=== PATIENT | female | born 1980 | race Caucasian/White ===

== ENCOUNTER 2020-04-07 07:40 | Outpatient (REF) | payer MEDICAID, SELFPAY ==
[2020-04-07 08:36] LABS: MANUAL DIFF FLAG NO
[2020-04-07 08:49] LABS: Basophils Percent Auto 0.3 % (0-2); Eosinophils Absolute Auto 0.2 X10*3/uL (0.0-0.4); Eosinophils Percent Auto 2.6 % (0-4); Hematocrit 44.1 % (37-47); Hemoglobin 14.9 g/dl (12.0-16.0); Imm Gran Abs Auto 0.02 X10*3/uL (0.00-0.03); Imm Gran Pct Auto 0.2 % (0.0-0.4); Lymphocytes Absolute Auto 2.5 X10*3/uL (1.2-4.9); Lymphocytes Percent Auto 27.5 % (20-40); Mean Corpuscular HGB Conc 33.8 g/dl (31.0-35.0); Mean Corpuscular Hemoglobin 31.2 pg (27.0-33.0); Mean Corpuscular Volume 92.3 fL (80-98); Monocytes Absolute Auto 0.8 X10*3/uL (0.1-1.2); Monocytes Percent Auto 8.2 % (2-11); Neutrophils Absolute Auto 5.6 X10*3/uL (2.0-8.3); Neutrophils Percent Auto 61.2 % (45-73); Platelet Count 280 X10*3/uL (160-400); Red Blood Count 4.78 X10*6/uL (4.20-5.50); Red Cell Distribution Width 11.9 % (11.0-16.0); White Blood Count 9.2 X10*3/uL (4.8-10.8)
[2020-04-07 09:05] LABS: Alanine Aminotransferase 19 U/L (0-31); Albumin Level 4.4 g/dL (3.5-5.0); Alkaline Phosphatase 54 U/L (39-117); Anion Gap 11 (12-20); Aspartate Amino Transferase 15 U/L (5-31); Bilirubin Total 0.7 mg/dL (0.0-1.0); Blood Urea Nitrogen 14 mg/dL (9-16); Calcium 9.1 mg/dL (8.4-10.2); Carbon Dioxide 27 mmol/L (22-29); Chloride 104 mmol/L (96-108); Cholesterol 206 mg/dL; Estimated Glomerular Filt Rate > 60; Glucose Random 101 mg/dL (60-115); HDL Cholesterol 42 mg/dL; LDL Cholesterol Calculated 134 mg/dl; Potassium 4.5 mmol/L (3.3-5.1); Sodium 137 mmol/L (135-145); Total Protein 7.3 g/dL (6.5-8.0); Triglycerides 150 mg/dL
[2020-04-07 09:26] LABS: Thyroid Stimulating Hormone 2.78 uIU/mL (0.32-4.0)
== END 2020-04-07 07:41 | disposition home or self-care (01) ==
LOC: HO.LAB 07:40
PROVIDERS: Visit Provider Internal Medicine
DX: Z00.01 Encounter for general adult medical examination with abnormal findings (principal); G93.2 Benign intracranial hypertension; R00.2 Palpitations; R07.89 Other chest pain; Z91.14 Patient's other noncompliance with medication regimen
CPT/HCPCS: 36415; 80053; 80061; 84443; 85025

== ENCOUNTER → 2020-05-02 12:51 | Outpatient (BNVA) | payer MEDICAID, SELFPAY | PROVIDERS: PCP Internal Medicine; Visit Provider Internal Medicine Cardiovascular Disease | DX: R07.89 Other chest pain (principal); R06.02 Shortness of breath; E78.5 Hyperlipidemia, unspecified | CPT/HCPCS: 93005; 99212 ==

== ENCOUNTER → 2020-05-06 07:54 | Outpatient (REF) | payer MEDICAID, SELFPAY ==
--- NOTE | 2020-05-06 08:01 | CA_ITS ---
Acquisition Time: 2020-05-06 08:10:19 Total Exercise Time: 00:08:22 Test Indications: Dyspnea Medications: ATORVASTATIN Protocol: STEVE Max HR: 166 BPM 92% of Pred: 179 BPM Max BP: 140/080 mmHG Max Work Load: 10.1 METS Exercise stress test using Steve protocol, total of 8 min 22 sec. METS 10.10 and TAPHR up to 92%. Pt denies any anginal sx. EKG without any arrhythmias no ischemic changes seen during exercise or in recovery. Normotensive response to exerrcise. Test reviewed with Dr. Leroy Referred By: Ricardo Hussein Overread By:
== END ==
LOC: HO.CARD 07:54
PROVIDERS: Visit Provider Internal Medicine Cardiovascular Disease
DX: R07.89 Other chest pain (principal); R06.02 Shortness of breath
CPT/HCPCS: 93016; 93017; 93018

== ENCOUNTER → 2020-06-07 13:59 | Outpatient (REF) | payer MEDICAID, SELFPAY ==
--- NOTE | 2020-06-07 14:01 | CA_ITS ---
Transthoracic Echocardiogram Patient (Last, First, Middle): Malia Polanco, Gender: Female Date of : 1980 Age: 40 Procedure Date: 06/07/2020 Procedure Type: Transthoracic Echocardiogram Location: OP Height: 157.48 cm Weight: 83.92 kg BSA: 1.85 m2 Heart Rate: bpm BP: 132 / 78 mmHg Field Nurse: HAYLEY Referring MD: Ricardo Hussein MD Facing Machine Operator: Ricardo Hussein MD Symptoms: R06.02 - Shortness of breath Study Quality: Good ECG Rhythm: Sinus Conclusions: - Normal study Findings Left Ventricle Normal left ventricular size, thickness, and systolic function. The visually estimated ejection fraction is between 60-65%. Diastolic function is normal for age. Right Ventricle Normal right ventricular cavity size and systolic function. Atria Both atria are normal in size. There is no evidence of interatrial shunt. Aortic Valve Normal aortic valve structure and function. There is no aortic valve stenosis. There is no aortic valve regurgitation. Mitral Valve Normal mitral valve structure and function. There is trace mitral valve regurgitation. There is no mitral valve stenosis. Pulmonic Valve The pulmonic valve is likely normal. Tricuspid Valve Normal tricuspid valve structure. There is trace tricuspid valve regurgitation. The right ventricular systolic pressure is normal. The right ventricular systolic pressure is 19 mmHg. Normal right atrial pressure. There is no evidence of pulmonary hypertension. Great Vessels All visible segments of the aorta are normal in size. The pulmonary artery was not well visualized. Venous The inferior vena cava is normal in size and collapses greater than 50% with inspiration. Pericardium/Pleural There is no evidence of pericardial effusion. Prior Study Comparison No previous study in last 5 years for comparison Measurements 2D Linear Measurements IVSd: 0.91 0.6-0.9/0.6-1.0 cm LVIDd: 4.52 3.9-5.3/4.2-5.9 cm LVIDd Index: 2.44 2.4-3.2/2.2-3.1 cm/m2 LVIDs: 2.88 2.0-3.6 cm LVPWd: 0.88 0.7-1.1 cm Ao Root: 2.70 2.1-3.5 cm LA Diam: 3.70 2.7-3.8/3.0-4.0 cm LAIDs Index: 2.00 1.5-2.3 cm/m2 LV Mass: 165.37 67-162/88-224 g LV Mass Index: 89.39 43-95/49-115 g/m2 LVOT Diam: 2.10 3.0+(-)1.3 cm Mitral Valve MV Pk E: 0.92 MV PK A: 0.78 MV Decel Time: 158.00 E/A: 1.20 E'Lateral: 16.60 E'Medial: 12.30 E/E' Med: 7.50 E/E' Lat: 5.50 PHT: 46.00 MVA PHT: 4.78 Decel [place]: 5.79 Aortic Valve AoV Pk Toney: 1.09 AoV Mn Toney: 0.73 AoV VTI: 0.25 AoV Pk Grad: 5.00 Aov Mn Grad: 3.00 KAL Cont.VTI: 2.44 LVOT LVOT Pk Toney: 0.84 LVOT Mn Toney: 0.54 LVOT VTI: 0.18 LVOT Pk Grad: 3.00 LVOT Mn Grad: 1.00 LVOT Diam: 2.10 LVOT Area: 3.46 Diastolic Function MV Pk E: 0.92 MV Pk A: 0.78 E/A: 1.20 E'Medial: 12.30 E/E' Med: 7.50 E' Laterial: 16.60 E/E' Lat: 5.50 Tricuspid Valve TR Pk Toney: 1.98 TR Pk Grad: 16.00 RA Press: 3.00 RVSP: 19.00 Great Vessels Aorta Ao Root-2D: 2.70 2.0-3.7 cm Ao Asc: 2.20 2.1-3.4 cm Pulmonary Valve PV Pk Toney: 1.00 Peak PV Grad: 4.00 Updated in Other Vendor System with Status of Final Ricardo Hussein MD electronically signed on 06/07/2020 4:10:38 PM with status of Final
== END ==
LOC: HO.CARD 13:59
PROVIDERS: PCP Internal Medicine; Visit Provider Internal Medicine Cardiovascular Disease
DX: R06.02 Shortness of breath (principal)
CPT/HCPCS: 93306

== ENCOUNTER → 2020-06-09 12:44 | Outpatient (BNVA) | payer MEDICAID, SELFPAY | PROVIDERS: PCP Internal Medicine; Visit Provider Internal Medicine Cardiovascular Disease | DX: R07.89 Other chest pain (principal); R06.02 Shortness of breath; E78.5 Hyperlipidemia, unspecified | CPT/HCPCS: 99212 ==

== ENCOUNTER 2020-07-20 07:51 | Outpatient (REF) | payer MEDICAID, SELFPAY ==
[2020-07-20 09:05] LABS: Alanine Aminotransferase 27 U/L (0-31); Albumin Level 4.3 g/dL (3.5-5.0); Alkaline Phosphatase 55 U/L (39-117); Anion Gap 11 (12-20); Aspartate Amino Transferase 16 U/L (5-31); Bilirubin Total 0.7 mg/dL (0.0-1.0); Blood Urea Nitrogen 16 mg/dL (9-16); Calcium 9.5 mg/dL (8.4-10.2); Carbon Dioxide 27 mmol/L (22-29); Chloride 105 mmol/L (96-108); Cholesterol 219 mg/dL; Estimated Glomerular Filt Rate > 60; Glucose Random 103 mg/dL (60-115); HDL Cholesterol 45 mg/dL; LDL Cholesterol Calculated 141 mg/dl; Potassium 4.5 mmol/L (3.3-5.1); Sodium 138 mmol/L (135-145); Total Protein 7.1 g/dL (6.5-8.0); Triglycerides 166 mg/dL
== END 2020-07-20 07:52 | disposition home or self-care (01) ==
LOC: HO.LAB 07:51
PROVIDERS: PCP Internal Medicine; Visit Provider Internal Medicine
DX: E78.00 Pure hypercholesterolemia, unspecified (principal); G93.2 Benign intracranial hypertension; J30.89 Other allergic rhinitis
CPT/HCPCS: 36415; 80053; 80061

== ENCOUNTER 2021-06-23 11:16 | Outpatient (REF) | payer MEDICAID, SELFPAY ==
--- NOTE | ~2021-06-23 | XR_ITS ---
EXAMINATION: XR HIP, LEFT CLINICAL INFORMATION: Pain. No known injury. COMPARISON: None TECHNIQUE: Two views of the left hip. FINDINGS: Visualized portion of the proximal left femur demonstrate no fracture. Left femoral head is well-seated within the acetabulum. The left femoral acetabular joint space is well-maintained. XR/XR hip LT min 2V IMPRESSION: Unremarkable radiographs of the left hip.
[2021-06-23 11:31] LABS: MANUAL DIFF FLAG NO
[2021-06-23 12:26] LABS: Basophils Percent Auto 0.4 % (0-2); Eosinophils Absolute Auto 0.1 X10*3/uL (0.0-0.4); Eosinophils Percent Auto 1.6 % (0-4); Hematocrit 42.3 % (37.0-47.0); Hemoglobin 14.4 g/dl (12.0-16.0); Imm Gran Abs Auto 0.01 X10*3/uL (0.00-0.03); Imm Gran Pct Auto 0.1 % (0.0-0.4); Lymphocytes Absolute Auto 1.7 X10*3/uL (1.2-4.9); Lymphocytes Percent Auto 24.9 % (20-40); Mean Corpuscular Hemoglobin 31.6 pg (27.0-33.0); Mean Corpuscular Volume 92.8 fL (80.0-98.0); Mean Platelet Volume 11.8 fL (9.4-12.3); Monocytes Absolute Auto 0.6 X10*3/uL (0.1-1.2); Monocytes Percent Auto 9.3 % (2-11); Neutrophils Absolute Auto 4.3 x10*3/uL (2.0-8.3); Neutrophils Percent Auto 63.7 % (45-73); Platelet Count 268 X10*3/uL (160-400); Red Blood Count 4.56 X10*6/uL (4.20-5.50); Red Cell Distribution Width 11.9 % (11.0-16.0); White Blood Count 6.8 X10*3/uL (4.8-10.8)
[2021-06-23 12:45] LABS: Alanine Aminotransferase 27 U/L (0-31); Albumin Level 4.4 g/dL (3.5-5.0); Alkaline Phosphatase 52 U/L (39-117); Anion Gap 10 (12-20); Aspartate Amino Transferase 16 U/L (5-31); Bilirubin Total 0.7 mg/dL (0.0-1.0); Blood Urea Nitrogen 13 mg/dL (9-16); Calcium 9.7 mg/dL (8.4-10.2); Carbon Dioxide 29 mmol/L (22-29); Chloride 105 mmol/L (96-108); Cholesterol 207 mg/dL; Estimated Glomerular Filt Rate > 60; Glucose Random 100 mg/dL (60-115); HDL Cholesterol 42 mg/dL; LDL Cholesterol Calculated 137 mg/dl; Potassium 4.6 mmol/L (3.3-5.1); Sodium 139 mmol/L (135-145); Total Protein 7.2 g/dL (6.5-8.0); Triglycerides 144 mg/dL
[2021-06-23 13:06] LABS: Thyroid Stimulating Hormone 1.66 uIU/mL (0.32-4.0)
== END 2021-06-23 11:17 | disposition home or self-care (01) ==
LOC: HO.LAB 11:16
PROVIDERS: PCP Internal Medicine; Visit Provider Internal Medicine
DX: Z00.01 Encounter for general adult medical examination with abnormal findings (principal); M16.12 Unilateral primary osteoarthritis, left hip; E78.00 Pure hypercholesterolemia, unspecified; G93.2 Benign intracranial hypertension; Z91.14 Patient's other noncompliance with medication regimen
CPT/HCPCS: 36415; 73502; 80053; 80061; 84443; 85025

== ENCOUNTER 2022-04-11 11:08 | Outpatient (REF) | payer MEDICAID, SELFPAY ==
[2022-04-11 13:42] LABS: MANUAL DIFF FLAG NO
[2022-04-11 13:52] LABS: Basophils Percent Auto 0.6 % (0-2); Eosinophils Absolute Auto 0.2 X10*3/uL (0.0-0.4); Eosinophils Percent Auto 3.1 % (0-4); Hematocrit 43.8 % (37.0-47.0); Hemoglobin 14.9 g/dl (12.0-16.0); Imm Gran Abs Auto 0.02 X10*3/uL (0.00-0.03); Imm Gran Pct Auto 0.3 % (0.0-0.4); Lymphocytes Absolute Auto 1.8 X10*3/uL (1.2-4.9); Lymphocytes Percent Auto 25.4 % (20-40); Mean Corpuscular Hemoglobin 31.1 pg (27.0-33.0); Mean Corpuscular Volume 91.4 fL (80.0-98.0); Mean Platelet Volume 11.4 fL (9.4-12.3); Monocytes Absolute Auto 0.7 X10*3/uL (0.1-1.2); Monocytes Percent Auto 9.8 % (2-11); Neutrophils Absolute Auto 4.4 x10*3/uL (2.0-8.3); Neutrophils Percent Auto 60.8 % (45-73); Platelet Count 259 X10*3/uL (160-400); Red Blood Count 4.79 X10*6/uL (4.20-5.50); Red Cell Distribution Width 11.9 % (11.0-16.0); White Blood Count 7.1 X10*3/uL (4.8-10.8)
[2022-04-11 14:51] LABS: Alanine Aminotransferase 29 U/L (0-31); Albumin Level 4.5 g/dL (3.5-5.0); Alkaline Phosphatase 56 U/L (39-117); Anion Gap 15 (12-20); Aspartate Amino Transferase 15 U/L (5-31); Bilirubin Total 0.9 mg/dL (0.0-1.0); Blood Urea Nitrogen 16 mg/dL (9-16); Calcium 9.4 mg/dL (8.4-10.2); Carbon Dioxide 23 mmol/L (22-29); Chloride 106 mmol/L (96-108); Cholesterol 226 mg/dL; Estimated Glomerular Filt Rate > 60; Glucose Fasting 95 mg/dL (60-99); HDL Cholesterol 45 mg/dL; LDL Cholesterol Calculated 143 mg/dl; Potassium 4.6 mmol/L (3.3-5.1); Sodium 139 mmol/L (135-145); Total Protein 7.1 g/dL (6.5-8.0); Triglycerides 191 mg/dL
[2022-04-11 14:54] LABS: Thyroid Stimulating Hormone 1.76 uIU/mL (0.32-4.0)
== END 2022-04-11 11:09 | disposition home or self-care (01) ==
LOC: HO.10HDL 11:08
PROVIDERS: Visit Provider Internal Medicine
DX: Z00.00 Encounter for general adult medical examination without abnormal findings (principal); E78.00 Pure hypercholesterolemia, unspecified; G93.2 Benign intracranial hypertension; Z90.710 Acquired absence of both cervix and uterus
CPT/HCPCS: 36415; 80053; 80061; 84443; 85025

== ENCOUNTER 2022-12-03 11:14 | Outpatient (REF) | payer MEDICAID, SELFPAY ==
[2022-12-03 14:23] LABS: Alanine Aminotransferase 32 U/L (0-31); Albumin Level 4.3 g/dL (3.5-5.0); Alkaline Phosphatase 49 U/L (39-117); Anion Gap 14 (12-20); Aspartate Amino Transferase 19 U/L (5-31); Bilirubin Total 0.4 mg/dL (0.0-1.0); Blood Urea Nitrogen 13 mg/dL (9-16); Calcium 9.6 mg/dL (8.4-10.2); Carbon Dioxide 23 mmol/L (22-29); Chloride 107 mmol/L (96-108); Cholesterol 217 mg/dL (<200); Estimated Glomerular Filt Rate > 60; Glucose Random 100 mg/dL (60-115); HDL Cholesterol 45 mg/dL (>40); LDL Cholesterol Calculated 141 mg/dL (<100); Potassium 4.2 mmol/L (3.3-5.1); Sodium 140 mmol/L (135-145); Total Protein 7.2 g/dL (6.5-8.0); Triglycerides 156 mg/dL (<150)
== END 2022-12-03 11:15 | disposition home or self-care (01) ==
LOC: HO.10HDL 11:14
PROVIDERS: Visit Provider Internal Medicine
DX: E78.00 Pure hypercholesterolemia, unspecified (principal); G93.2 Benign intracranial hypertension; I10 Essential (primary) hypertension; M13.0 Polyarthritis, unspecified
CPT/HCPCS: 36415; 80053; 80061

== ENCOUNTER 2023-05-06 12:43 | Outpatient (REF) | payer MEDICAID, SELFPAY ==
[2023-05-06 13:58] LABS: Alanine Aminotransferase 33 U/L (0-31); Albumin Level 4.4 g/dL (3.5-5.0); Alkaline Phosphatase 59 U/L (39-117); Anion Gap 11 (12-20); Aspartate Amino Transferase 19 U/L (5-31); Bilirubin Total 0.6 mg/dL (0.0-1.0); Blood Urea Nitrogen 11 mg/dL (9-16); Calcium 9.4 mg/dL (8.4-10.2); Carbon Dioxide 27 mmol/L (22-29); Chloride 106 mmol/L (96-108); Cholesterol 197 mg/dL (<200); Estimated Glomerular Filt Rate > 60; Glucose Random 102 mg/dL (60-115); HDL Cholesterol 41 mg/dL (>40); LDL Cholesterol Calculated 115 mg/dL (<100); Potassium 4.3 mmol/L (3.3-5.1); Sodium 140 mmol/L (135-145); Total Protein 7.3 g/dL (6.5-8.0); Triglycerides 207 mg/dL (<150)
== END 2023-05-06 12:44 | disposition home or self-care (01) ==
LOC: HO.10HDL 12:43
PROVIDERS: Visit Provider Internal Medicine
DX: Z00.00 Encounter for general adult medical examination without abnormal findings (principal); E78.00 Pure hypercholesterolemia, unspecified; G93.2 Benign intracranial hypertension; I10 Essential (primary) hypertension; L40.8 Other psoriasis; M13.0 Polyarthritis, unspecified; M51.16 Intervertebral disc disorders with radiculopathy, lumbar region
CPT/HCPCS: 36415; 80053; 80061

== ENCOUNTER 2023-05-08 19:53 | Outpatient (REF) | payer MEDICAID, SELFPAY ==
--- NOTE | ~2023-05-08 | MR_ITS ---
EXAMINATION: MR LUMBAR SPINE WITHOUT CONTRAST CLINICAL INFORMATION: 42-year-old with radiculopathy. Self-reported low back pain radiating to the right hip and groin. COMPARISON: None available. TECHNIQUE: MRI of the lumbar spine was obtained using routine sequences without contrast. FINDINGS: CORONAL ALIGNMENT: Mild thoracolumbar levocurvature, mildly convex to the left at T12-L1. SAGITTAL ALIGNMENT: Normal. LUMBOSACRAL JUNCTION: Normal. There are 5 [id number] lumbar-type vertebral bodies. VERTEBRAL BODIES: Well maintained with normal height. No compression fractures, anomalies or other deformities. DISC SPACES AND ENDPLATES: There is disc desiccation at L5-S1 without significant disc space height loss. Remaining lumbar intervertebral discs demonstrate normal height and signal. Endplates appear intact. There is no significant spondylosis. SPINAL CANAL: No abnormal developmental findings. BONE MARROW: No suspicious marrow-replacing process or bone marrow edema. There is a 1.3 cm benign vertebral hemangioma within the L1 vertebral body. CONUS MEDULLARIS: Terminates at L2. Morphology and signal is normal. INTRADURAL NERVE ROOTS: Within normal limits. L5-S1: There is a tiny central annular fissure without significant disc bulge or herniation. There is moderate to severe left and [id number] right-sided facet joint arthropathy with ligamentum flavum thickening asymmetric to the left. No significant canal or neural foraminal stenosis. L4-L5: There is a tiny left subarticular disc protrusion without neural impingement. Minor right-sided and [id number]-gh-[id number] left-sided facet joint arthrosis is noted. There is minor foraminal narrowing on the left without significant canal stenosis. L3-L4: Normal annular contour. Minor facet joint arthropathy noted. No canal or foraminal stenosis. L2-L3: Shallow left paramedian disc protrusion with minimal indentation of the left ventral thecal sac without neural impingement. No significant facet arthrosis, canal or foraminal stenosis. L1-L2: Normal annular contour. No facet arthrosis, canal or neural foraminal stenosis. T12-L1: Normal annular contour. Mild ligamentum flavum thickening and minor facet arthrosis on the left. No canal or foraminal stenosis. PARAVERTEBRAL AND INCLUDED EXTRASPINAL SOFT TISSUES: The visualized paravertebral soft tissues and included retroperitoneal structures are unremarkable within the limitations of the exam. MR/MR lumbar spine wo con IMPRESSION: 1. Mild disc degenerative change at L5-S1 with a tiny central annular fissure at this level and a tiny left subarticular disc protrusion at L4-L5 without neural impingement. 2. Multilevel bilateral facet joint arthropathy, most apparent on the left at L5-S1 and L4-L5 with ligamentum flavum thickening and a tiny left paramedian disc protrusion at L2-L3 without neural impingement. 3. No significant spinal canal stenosis. Minor foraminal narrowing on the left at L4-L5 without neural impingement. 4. Mild thoracolumbar levocurvature, mildly convex to the left at T12-L1.
== END 2023-05-08 19:54 | disposition home or self-care (01) ==
LOC: HO.MRI 19:53
PROVIDERS: PCP Internal Medicine; Visit Provider Internal Medicine
DX: M54.16 Radiculopathy, lumbar region (principal)
CPT/HCPCS: 72148

== ENCOUNTER 2024-05-13 09:54 | Outpatient (REF) | payer MEDICAID, SELFPAY ==
[2024-05-13 10:51] LABS: MANUAL DIFF FLAG NO
[2024-05-13 11:09] LABS: Basophils Absolute Auto 0.1 X10*3/uL (0.0-0.2); Basophils Percent Auto 0.6 % (0-2); Eosinophils Absolute Auto 0.4 X10*3/uL (0.0-0.4); Eosinophils Percent Auto 4.9 % (0-4); Hematocrit 42.6 % (37.0-47.0); Hemoglobin 14.2 g/dl (12.0-16.0); Imm Gran Abs Auto 0.03 X10*3/uL (0.00-0.03); Imm Gran Pct Auto 0.3 % (0.0-0.4); Lymphocytes Absolute Auto 2.2 X10*3/uL (1.2-4.9); Lymphocytes Percent Auto 25.7 % (20-40); Mean Corpuscular HGB Conc 33.3 g/dl (31.0-35.0); Mean Corpuscular Hemoglobin 30.8 pg (27.0-33.0); Mean Corpuscular Volume 92.4 fL (80.0-98.0); Monocytes Absolute Auto 0.8 X10*3/uL (0.1-1.2); Monocytes Percent Auto 9.3 % (2-11); Neutrophils Absolute Auto 5.1 x10*3/uL (2.0-8.3); Neutrophils Percent Auto 59.2 % (45-73); Platelet Count 245 X10*3/uL (160-400); Red Blood Count 4.61 X10*6/uL (4.20-5.50); Red Cell Distribution Width 12.3 % (11.0-16.0); White Blood Count 8.6 X10*3/uL (4.8-10.8)
[2024-05-13 11:36] LABS: Alanine Aminotransferase 27 U/L (0-31); Albumin Level 4.2 g/dL (3.5-5.0); Alkaline Phosphatase 53 U/L (39-117); Anion Gap 9 (12-20); Aspartate Amino Transferase 18 U/L (5-31); Bilirubin Total 0.6 mg/dL (0.0-1.0); Blood Urea Nitrogen 17 mg/dL (9-16); Calcium 9.4 mg/dL (8.4-10.2); Carbon Dioxide 27 mmol/L (22-29); Chloride 108 mmol/L (96-108); Cholesterol 203 mg/dL (<200); Estimated Glomerular Filt Rate > 60; Glucose Random 99 mg/dL (60-115); HDL Cholesterol 43 mg/dL (>40); LDL Cholesterol Calculated 137 mg/dL (<100); Potassium 4.4 mmol/L (3.3-5.1); Sodium 140 mmol/L (135-145); Total Protein 7.4 g/dL (6.5-8.0); Triglycerides 115 mg/dL (<150)
== END 2024-05-13 09:55 | disposition home or self-care (01) ==
LOC: HO.10HDL 09:54
PROVIDERS: Visit Provider Internal Medicine
DX: I10 Essential (primary) hypertension (principal); L40.8 Other psoriasis
CPT/HCPCS: 36415; 80053; 80061; 85025

== ENCOUNTER 2025-01-27 10:46 | Outpatient (AMB) | payer MEDICAID, SELFPAY ==
--- NOTE | 2025-01-27 10:49 | MHC.OFFVIS ---
Vital Signs 01/27/25 11:07 Height 5 ft 2 in Weight 188 lb BMI 34.4 BP 142/73 H Blood Pressure Location Lt brachial Pulse 93 Intake Visit Reasons: right leg mass Intake Note: Patient is seen in office for evaluation of a right leg mass. 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 During the visit she admits that she does not have any a mass involving her right leg but has some pain involving the distal posterior aspect of her right lower extremity. She also reports episodic chest pain ?when I laid down to go to sleep? and pain in her lower abdomen. She denies any fevers chills nausea or vomiting. All of her reports of discomfort appeared to be related to movement. She has no exacerbation of any liver issues with eating or drinking or bowel or bladder habits. She reports that she has had multiple studies however none of them were in the system here. She verbally reports that her ultrasound was indicative of a fatty liver and a small renal cyst. I can not confirm this. Past surgical history is significant for , hysterectomy and tubal ligation. This was all again from her verbal resuscitation. [facility] Medical History (Updated 01/27/25 @ 11:25 by Saud Shetty MD) Pseudotumor cerebri Hyperlipidemia Surgical History (Updated 01/26/25 @ 13:16 by SHAWN Miranda) Hx of prior ablation treatment (12/02/13) History of biopsy (2012) History of loop electrical excision procedure (LEEP) Hx of tonsillectomy Hx of hysterectomy (03/09/17) Hx of tubal ligation Hx of section Family History (Updated 01/26/25 @ 13:16 by SHAWN Miranda) Father No problems noted. Mother No problems noted. Paternal Grandfather Family hx of prostate cancer Review of Systems Const All systems reviewed & are unremarkable except as noted in HPI and below Physical Exam Vital Signs: Last Vital Signs Pulse 93 01/27/25 11:07 BP 142/73 H 01/27/25 11:07 BMI result Body Mass Index 34.4 Const General: cooperative, healthy appearing, comfortable, no acute distress and well developed Nutritional Appearance: obese morbidly obese Orientation/consciousness: oriented to person, oriented to place and oriented to time HEENT Head: Yes normal to inspection Eyes General: appearance normal, both eyes and all related structures Pupils: Equal, round and reactive pupils present EOM: EOMs intact bilaterally Neck Neck: Yes normal visual inspection Chest Chest palpation & inspection: normal inspection of the chest Resp Effort & Inspection: normal respiratory effort and able to speak in complete sentences Cardio Rate: regular rate Rhythm: regular rhythm GI Other: Soft morbidly obese and nondistended. She has a thick anterior abdominal wall secondary to abundant soft tissue adiposity. She has a pendulous pannus with a dependent pannicular draped. She locates reached of her abdominal discomfort in the lower midline abdomen, suprapubic region and extending over to the right lower aspect of her abdomen. Examination of these regions are unremarkable. There is no guarding, no peritoneal signs although the patient reports some tenderness with palpation. I can not appreciate any masses or hernias I can not appreciate any evidence of hepatosplenomegaly. General: Yes no CVA tenderness Back/Spine/Pelvis Back: no CVA tenderness Cervical Spine: normal cervical lordosis Thoracic/Lumbar Spine: thoracic and lumbar spine normal to inspection Neuro General: oriented to person, oriented to place and oriented to time Cranial nerves: Yes Equal, round and reactive pupils present Extrem General: Yes normal to inspection Upper/lower leg/hip images:  1. Patient reports pain. (no abnormality appreciated) Assessment & Plan Assessment & Plan (1) Abdominal pain: Code(s): R10.9 - Unspecified abdominal pain Category: Medical Plan: I told the patient as sorry that she was having some discomfort. I added that as a loss as to what to do for her abdominal pain has I can not appreciate any abnormality on physical examination and I was not privy to her multiple radiographic and ultrasonographic studies which were all performed at outside institutions. We do not have reports or images from the studies. I told her I would have the office staff work with her with regard to seeing if we can upload reports or images into the computer system here and we will see her back when we have those results in the meantime she is encouraged to contact us should she have any questions or problems. She said she was happy with that plan. Coding Level of Care Code New Pt Level 3 (28956) Diagnoses Abdominal pain R10.9 Time Spent (min) 30 Comment Record review, patient visit and coordination of care
[2025-01-27 11:07] VITALS: BP 142/73; PULSE 93; BMI 34.4
== END 2025-01-27 11:27 | disposition home or self-care (01) ==
LOC: HO.HGS 10:47
PROVIDERS: PCP Internal Medicine; Visit Provider Surgery
DX: R10.9 Unspecified abdominal pain (principal); R22.41 Localized swelling, mass and lump, right lower limb
CPT/HCPCS: 99203

== ENCOUNTER → 2025-01-27 10:46 | Outpatient (BNVA) | payer MEDICAID, SELFPAY | PROVIDERS: PCP Internal Medicine; Visit Provider Surgery | DX: R10.31 Right lower quadrant pain (principal) | CPT/HCPCS: 99202 ==